=== PATIENT | female | born 1955 | race Caucasian/White ===

== ENCOUNTER 2022-05-06 05:32 | Day surgery (SDC) | payer OTHER ==
[~2022-05-06] VITALS: Ht 157.5 cm; Wt 78.0 kg
[~2022-05-06 05:32] MED LIST: CELE-84 PO; CYCLOPENTOLATE HCL 1% 2 ML OPHTHALMIC SOLUTION ONE; ERGO500054 PO; ESCI20TA37 PO; FLURBIPROFEN SODIUM 0.03% 2.5 ML OPHTHALMIC SOLUTION ONE; LISI5TAB21 PO; MIRA25TA PO; MOXIFLOXACIN HCL 0.5% 3 ML OPHTHALMIC SOLUTION ONE; OMEP20CA12 PO; PHENYLEPHRINE HCL 2.5% 2 ML OPHTHALMIC SOLUTION ONE; RINGERS SOLUTION,LACTATED 500 ML IV ONE; ROSU40 PO; SITA1TAB6 PO; TETRACAINE HCL/PF 0.5% 4 ML OPHTHALMIC SOLUTION ONE; TROPICAMIDE 1% 2 ML OPHTHALMIC SOLUTION ONE
[2022-05-06] MEDS ORDERED: PrednisoLONE ACETATE 1% 5 ML OPHTHALMIC SUSPENSION OU ONE (05:33)
[2022-05-06] MEDS ORDERED: LIDOCAINE/PF 1% 2 ML VIAL IM ONE (05:33)
[2022-05-06] MEDS ORDERED: HYALURONATE SOD 8.5MG/0.85ML 10 MG/ML SYRINGE IO ONE (05:33)
[2022-05-06] MEDS ORDERED: BALANCED SALT 15 ML OPHTHALMIC IRRIG.SOLN IO ONE (05:33)
[2022-05-06] MEDS ORDERED: POVIDONE-IODINE 10% 15 ML SOLUTION UD TP ONE (05:33)
[2022-05-06] MEDS ORDERED: TETRACAINE HCL/PF 0.5% 4 ML OPHTHALMIC SOLUTION OU ONE (05:33)
[2022-05-06] MEDS ORDERED: EPINEPHrine 1:1,000 [1 MG/ML] VIAL IM ONE (05:33)
[2022-05-06 06:04] LABS: COVID AG,FIA SOURCE NASAL SWAB
[2022-05-06] MEDS: TROPICAMIDE 1% 2 ML OPHTHALMIC SOLUTION OD SCH ×3 (06:29→06:43)
[2022-05-06] MEDS: FLURBIPROFEN SODIUM 0.03% 2.5 ML OPHTHALMIC SOLUTION OD SCH ×3 (06:29→06:43)
[2022-05-06] MEDS: CYCLOPENTOLATE HCL 1% 2 ML OPHTHALMIC SOLUTION OD SCH ×3 (06:29→06:43)
[2022-05-06] MEDS: MOXIFLOXACIN HCL 0.5% 3 ML OPHTHALMIC SOLUTION OD SCH ×3 (06:29→06:43)
[2022-05-06] MEDS: PHENYLEPHRINE HCL 2.5% 2 ML OPHTHALMIC SOLUTION OD SCH ×3 (06:29→06:43)
[2022-05-06] MEDS ORDERED: TETRACAINE HCL/PF 0.5% 4 ML OPHTHALMIC SOLUTION OD ONE (07:00)
[2022-05-06 07:07] LABS: GLUCOMETER DEV NAME(LOC) SDS.; GLUCOSE,POINT OF CARE 123 MG/DL (70-110)
[2022-05-06] MEDS ORDERED: FentaNYL CITRATE PF 100 MCG/2 ML VIAL IVP ONE (12:00)
[2022-05-06] MEDS ORDERED: MIDAZOLAM HCL 2 MG/2 ML VIAL IVP ONE (12:00)
== END 2022-05-06 08:20 | disposition home or self-care (01) ==
LOC: SURGERY 05:32
PROVIDERS: ATTEND Ophthalmology
DX: E11.36 Type 2 diabetes mellitus with diabetic cataract (principal); H25.11 Age-related nuclear cataract, right eye; E78.00 Pure hypercholesterolemia, unspecified; E78.5 Hyperlipidemia, unspecified; B18.2 Chronic viral hepatitis C; G89.29 Other chronic pain; I25.2 Old myocardial infarction; K21.9 Gastro-esophageal reflux disease without esophagitis; Z79.899 Other long term (current) drug therapy; Z91.040 Latex allergy status; Z98.890 Other specified postprocedural states; Z90.710 Acquired absence of both cervix and uterus
CPT/HCPCS: 66984; 87426; 82962; 93005; J0171; J3010; J3490; J2250; J7120; V2632; C9803

== ENCOUNTER 2022-06-06 12:16 | Day surgery (SDC) | payer OTHER ==
[~2022-06-06] VITALS: Ht 160 cm; Wt 63.6 kg
[~2022-06-06 12:16] MED LIST changes: +CYCLOPENTOLATE HCL 2% 2 ML OPHTHALMIC SOLUTION OS SCH; +DICLOFENAC SODIUM 0.1% 2.5 ML OPHTHALMIC SOLUTION OS SCH; +MOXIFLOXACIN HCL 0.5% 3 ML OPHTHALMIC SOLUTION OS SCH; +PHENYLEPHRINE HCL 2.5% 2 ML OPHTHALMIC SOLUTION OS SCH; +TETRACAINE HCL/PF 0.5% 4 ML OPHTHALMIC SOLUTION OS ONE; +TETRACAINE HCL/PF 0.5% 4 ML OPHTHALMIC SOLUTION OS SCH
[2022-06-06] MEDS ORDERED: FentaNYL CITRATE PF 100 MCG/2 ML VIAL IVP ONE (12:17)
[2022-06-06] MEDS ORDERED: HYALURONATE SOD 8.5MG/0.85ML 10 MG/ML SYRINGE IO ONE (12:17)
[2022-06-06] MEDS ORDERED: LIDOCAINE 2%/EPI 1:200,000/PF 10 ML VIAL CAUDAL ONE (12:17)
[2022-06-06] MEDS ORDERED: LIDOCAINE/PF 1% 2 ML VIAL CAUDAL ONE (12:17)
[2022-06-06] MEDS ORDERED: MIDAZOLAM HCL 2 MG/2 ML VIAL IVP ONE (12:17)
[2022-06-06] MEDS ORDERED: BALANCED SALT 15 ML OPHTHALMIC IRRIG.SOLN IO ONE (12:17)
[2022-06-06] MEDS ORDERED: POVIDONE-IODINE 5% 30 ML OPHTHALMIC SOLUTION OD ONE (12:17)
[2022-06-06 12:43] LABS: COVID AG,FIA SOURCE NASAL SWAB
[2022-06-06] MEDS: CYCLOPENTOLATE HCL 1% 2 ML OPHTHALMIC SOLUTION OS SCH ×3 (12:46→12:58)
[2022-06-06] MEDS: TROPICAMIDE 1% 2 ML OPHTHALMIC SOLUTION OS SCH ×3 (12:47→12:58)
[2022-06-06] MEDS: FLURBIPROFEN SODIUM 0.03% 2.5 ML OPHTHALMIC SOLUTION OS SCH ×3 (12:47→12:59)
[2022-06-06] MEDS: PHENYLEPHRINE HCL 2.5% 2 ML OPHTHALMIC SOLUTION OS SCH ×3 (12:47→12:58)
[2022-06-06] MEDS: MOXIFLOXACIN HCL 0.5% 3 ML OPHTHALMIC SOLUTION OS SCH ×3 (12:48→12:59)
[2022-06-06 13:46] LABS: GLUCOMETER DEV NAME(LOC) SDS.; GLUCOSE,POINT OF CARE 97 MG/DL (70-110)
[2022-06-06] MEDS ORDERED: ACETAMINOPHEN 325 MG TABLET ONE (15:04)
[2022-06-06] MEDS ORDERED: ACETAMINOPHEN 325 MG TABLET PO ONE (15:15)
== END 2022-06-06 15:25 | disposition home or self-care (01) ==
LOC: SURGERY 12:16
PROVIDERS: ATTEND Ophthalmology
DX: E11.36 Type 2 diabetes mellitus with diabetic cataract (principal); H25.12 Age-related nuclear cataract, left eye; I10 Essential (primary) hypertension; Z98.890 Other specified postprocedural states; Z90.710 Acquired absence of both cervix and uterus; Z79.899 Other long term (current) drug therapy; E78.00 Pure hypercholesterolemia, unspecified; Z98.42 Cataract extraction status, left eye; G89.29 Other chronic pain
CPT/HCPCS: 66984; 87426; 82962; C9803; J3010; J3490; J2250; Q9967; J7120; V2632